=== PATIENT | male | born 1995 | race Asian ===

== ENCOUNTER → 2019-02-14 | Outpatient (CLI) | payer OTHER, BC | END | disposition home or self-care (01) | LOC: CFH 07:12 | PROVIDERS: ATTEND Nurse Practitioner Family | DX: K76.89 Other specified diseases of liver (principal); R94.5 Abnormal results of liver function studies | CPT/HCPCS: 76700 ==

== ENCOUNTER 2019-05-10 09:14 | Outpatient (CLI) | payer BC, OTHER | END 2019-05-10 23:59 | disposition home or self-care (01) | LOC: CFH 09:14 | PROVIDERS: ATTEND Internal Medicine Cardiovascular Disease | DX: I34.0 Nonrheumatic mitral (valve) insufficiency (principal); R94.5 Abnormal results of liver function studies | CPT/HCPCS: 93306 ==